=== PATIENT | male | born 1990 | race Caucasian/White ===

== ENCOUNTER 2021-08-30 11:24 | Emergency (ER) | payer OTHER ==
[~2021-08-30] VITALS: Ht 175.3 cm; Wt 90.3 kg
[2021-08-30 11:40] VITALS: BP 104/73
--- NOTE | 2021-08-30 13:50 | NUR ---
L WRIST SPLINT PLACED ON PT. + CMS AFTER APPLICATION
--- NOTE | 2021-08-30 14:10 | NUR ---
NO NURSING INTERVENTIONS GIVEN. NO NEED FOR COMPLETE
--- NOTE | 2021-08-30 14:12 | NUR ---
Patient discharged with v/s stable. Written and verbal after care instructions given and explained. Patient verbalized understanding. Ambulatory with steady gait. All questions addressed prior to discharge. Advised to follow up with PMD.
== END 2021-08-30 14:12 | disposition home or self-care (01) ==
LOC: MED 11:24
DX: S63.502A Unspecified sprain of left wrist, initial encounter (principal); V89.2XXA Person injured in unspecified motor-vehicle accident, traffic, initial encounter; Y93.89 Activity, other specified; Y92.410 Unspecified street and highway as the place of occurrence of the external cause; Y99.8 Other external cause status
CPT/HCPCS: 73110; 73130; 99284